=== PATIENT | female | born 1945 | race Caucasian/White ===

== ENCOUNTER 2017-09-30 10:00 | Outpatient (RCR) | payer MEDICARE, BC, SELFPAY | END 2017-10-02 23:59 | LOC: NS 10:00 | PROVIDERS: Family Provider Internal Medicine; PCP Internal Medicine; Visit Provider Specialist | DX: Z68.43 Body mass index [BMI] 50.0-59.9, adult (principal); Z71.3 Dietary counseling and surveillance | CPT/HCPCS: 97802; 97803 ==

== ENCOUNTER → 2017-10-10 08:18 | Outpatient (CLI) | payer MEDICARE, BC, SELFPAY ==
--- NOTE | 2017-10-10 08:18 | DT_ITS ---
This patient was seen during an EMR downtime October 06, 2017 - October 13, 2017. This patient may have a combination of paper and electronic documentation or all paper documentation. All documentation is viewable within the e-chart portion of [facility] for each patient visit.
--- NOTE | 2017-10-10 08:24 | CT_ITS ---
STUDY: CT MAXILLOFACIAL SINUSES REASON FOR EXAM: Female, 71 years old. Left-sided facial pain and swelling RADIATION DOSAGE (If Supplied By Facility): CTDIvol = ( 29.38 ) mGy, DLP = ( 407.88 ) mGycm TECHNIQUE: The patient was scanned in a multi detector CT scanner. High resolution axial imaging was performed without the administration of intravenous contrast material. Sagittal and coronal images were reconstructed. Individualized dose optimization techniques were used for this CT. COMPARISON: None. FINDINGS: FRONTAL SINUSES: Normal aeration, without mucosal inflammatory disease. ETHMOIDAL SINUSES: Mild mucosal thickening of the ethmoid vessels also noted. MAXILLARY SINUSES: Complete opacification of the left-sided maxillary sinus with mucoperiosteal thickening and internal hyperdensity likely related with chronic sinusitis with allergic fungal contents. Subtle stranding in the left retromaxillary space as well as a premaxillary space noted. Invasive fungal sinusitis is a diagnostic consideration SPHENOIDAL SINUSES: Normal aeration, without mucosal inflammatory disease. There is patency of the bilateral maxillary infundibuli with normal uncinate processes, ethmoid bullae, and hiatus semilunaris. Normal bilateral middle turbinates. Normal bilateral inferior turbinates. Annual for deviation of the nasal septum with spurring encroaching on the inferior turbinate.. There is patency of the bilateral nasal airways. The visualized osseous structures are normal. The visualized bilateral orbital contents are normal. Intracranial atherosclerotic vascular calcifications are noted. Chronic small vessel disease. Pleural-based calcifications. CT/Sinus/Facial Bone IMPRESSION: Complete opacification of the left-sided maxillary sinus with mucoperiosteal thickening and internal hyperdensity likely related with chronic sinusitis with allergic fungal contents. Subtle stranding in the left retromaxillary space as well as a premaxillary space noted. Invasive fungal sinusitis is a diagnostic consideration. Narrowing and obstruction of the left maxillary bone. Periapical cyst formation of the left maxillary tooth noted with subtle dehiscence along the floor of the left maxillary sinus Electronically Signed: Dhaval Crandall, at 14:23 EDT Tel , Service support ,
== END ==
PROVIDERS: Family Provider Internal Medicine; PCP Internal Medicine; Visit Provider Internal Medicine
DX: R51 Headache (principal); Z12.31 Encounter for screening mammogram for malignant neoplasm of breast
CPT/HCPCS: 70486; 77063; 77067

== ENCOUNTER → 2017-10-10 10:26 | Outpatient (CLI) | payer MEDICARE, BC, SELFPAY ==
--- NOTE | 2017-10-10 10:26 | DT_ITS ---
This patient was seen during an EMR downtime October 06, 2017 - October 13, 2017. This patient may have a combination of paper and electronic documentation or all paper documentation. All documentation is viewable within the e-chart portion of [facility] for each patient visit.
--- NOTE | 2017-10-10 10:35 | BI_ITS ---
MAMMOGRAPHY - BILATERAL SCREENING REASON FOR EXAM: Female, 71 years old. Routine annual screening examination. PERTINENT HISTORY: Non-contributory. TECHNIQUE: Digital bilateral breast sushma (3D mammographic acquisition) in the CC and MLO projections. 2-D mediolateral oblique (MLO) and craniocaudad (CC) views of both breasts were obtained. CAD: Full Field Digital Mammography with Computer Added Detection was performed. COMPARISON: Comparison is made with prior study dated May 07, 2016 and May 03, 2014. FINDINGS: Breast Composition: There are scattered areas of fibroglandular density. There are no dominant masses or suspicious calcifications. This is 6.4 mm well-defined nodular density in the upper lateral portion of the right breast. Correlation with ultrasound is recommended. Stable benign appearing bilateral axillary lymph nodes. No other significant abnormalities are identified. BI/SCREENING MAMM (CAD), BILAT IMPRESSION: 6.4 mm well-defined nodule in the upper lateral portion of the right breast as described. Correlation with ultrasound is recommended. ASSESSMENT CATEGORY: BIRADS Category 0: Incomplete. Need additional imaging evaluation. A letter regarding these results will be sent to the patient by the facility within 30 days. Approximately 10% of breast cancers are not detected by mammography. A normal mammogram should not delay biopsy of a clinically suspicious abnormality. [id number] Electronically Signed: Temo Lopez MD at 10:01 EDT Tel [phone], Service support ,
== END ==
PROVIDERS: Family Provider Internal Medicine; PCP Internal Medicine; Visit Provider Internal Medicine
DX: Z12.31 Encounter for screening mammogram for malignant neoplasm of breast (principal)
CPT/HCPCS: 77063; 77067

== ENCOUNTER 2017-10-23 16:00 | Outpatient (RCR) | payer MEDICARE, BC, SELFPAY | END 2017-11-01 23:59 | LOC: DC 16:00 | PROVIDERS: Family Provider Internal Medicine; PCP Internal Medicine; Visit Provider Specialist | DX: Z71.3 Dietary counseling and surveillance (principal); Z68.43 Body mass index [BMI] 50.0-59.9, adult | CPT/HCPCS: 97803; G0108 ==

== ENCOUNTER → 2017-10-27 10:31 | Outpatient (CLI) | payer MEDICARE, BC, SELFPAY ==
--- NOTE | 2017-10-27 10:34 | US_ITS ---
STUDY: ULTRASOUND BREAST - RIGHT REASON FOR EXAM: Female, 72 years old. Abnormal screening mammogram. TECHNIQUE: Axial and longitudinal images of the RIGHT breast were performed with a high resolution ultrasound transducer. COMPARISON: Comparison is made with prior mammogram dated October 10, 2017 and May 07, 2016. FINDINGS: RIGHT Breast: The upper outer quadrant of the right breast was examined by ultrasound. There is a 6 mm x 4 mm x 2 mm hypoechoic solid nodule with mild posterior shadowing at 11:00 position of the breast at 2 cm from the nipple. This corresponds to the mammographic findings. A biopsy is recommended for further evaluation. Is also evidence of a 7 mm x 7 mm x 6 mm cyst at the 9:00 position of the breast at 5 cm from nipple. US/Breast Limited Unilateral IMPRESSION: 6 mm x 4 mm x 2 mm hypoechoic solid nodule with posterior acoustical shadowing at the 11:00 position breast at 2 cm from nipple. Biopsy recommended. ASSESSMENT CATEGORY: BIRADS Category 4: Suspicious - Biopsy Should Be Considered. A letter regarding these results will be sent to the patient by the facility within 30 days. Electronically Signed: Temo Lopez MD at 13:10 EDT Tel [phone], Service support ,
== END ==
PROVIDERS: Family Provider Internal Medicine; PCP Internal Medicine; Visit Provider Internal Medicine
DX: R92.8 Other abnormal and inconclusive findings on diagnostic imaging of breast (principal)
CPT/HCPCS: 76642

== ENCOUNTER → 2017-10-31 11:21 | Outpatient (CLI) | payer MEDICARE, BC, SELFPAY ==
--- NOTE | 2017-10-31 | BRBX_PTH ---
PATIENT: ITZEL VIEYRA LOC: [facility] U#:[id number] AGE/SX: 79/F ROOM: RE10/31/[address]: Dr. Zackary Perrin MD : 1945 BED: DIS: SPEC #: [id number] RECD: 10/31/17 13:16 STATUS: KISHOR YO #: [id number] EKTA: 10/31/17 00:[address]: Zackary Perrin DEPT: SURGICAL PATHOLOGY RECD BY: Nato Guthrie ENTERED: 10/31/17 13:17 SP TYPE: BREAST BX OTHR DR: Dr. Jaimie Bragg MD Tissues: Right breast, NOS Procedures: Surgery Specimen Level IV HEADER OPERATION: Right breast mammotome, biopsy PRE-OP DIAGNOSIS: Right breast abnormal US TISSUE SUBMITTED: Right breast tissue ISCHMEIC TIME: Less than 1 minute FIXATION TIME: 48hours MICROSCOPIC DIAGNOSIS Right breast tissue, mammotome core biopsy: Hyalinized fibroadenoma. Negative for atypia or malignancy. MYLES:enrrique 11/03/17 COMMENT Correlation with clinical, radiologic findings and appropriate follow up are necessary. MICROSCOPIC DESCRIPTION Slides are reviewed. GROSS DESCRIPTION Received in fixative is one container labeled with the patient's name and designated right breast tissue. The specimen consists of multiple irregular fragments of joyce yellow fibroadipose tissue in aggregate measure 3 x 2.5 x 0.2 cm. The specimen is totally submitted in one cassette. MYLES:enrrique 10/31/17 TC:1 CPT: 38886
== END ==
PROVIDERS: Family Provider Internal Medicine; PCP Internal Medicine; Visit Provider Surgery
DX: D24.1 Benign neoplasm of right breast (principal)
CPT/HCPCS: 88305

== ENCOUNTER 2017-11-11 10:07 | Outpatient (RCR) | payer MEDICARE, BC, SELFPAY | END 2017-12-02 23:59 | LOC: NS 10:07 | PROVIDERS: Family Provider Internal Medicine; PCP Internal Medicine; Visit Provider Specialist | DX: Z68.43 Body mass index [BMI] 50.0-59.9, adult (principal); Z71.3 Dietary counseling and surveillance | CPT/HCPCS: 97803 ==

== ENCOUNTER 2017-12-15 11:30 | Outpatient (RCR) | payer MEDICARE, BC, SELFPAY | END 2018-01-02 23:59 | LOC: NS 11:30 | PROVIDERS: Family Provider Internal Medicine; PCP Internal Medicine; Visit Provider Specialist | DX: E11.9 Type 2 diabetes mellitus without complications (principal); E66.8 Other obesity; Z68.43 Body mass index [BMI] 50.0-59.9, adult; Z71.3 Dietary counseling and surveillance | CPT/HCPCS: 97803; G0109 ==

== ENCOUNTER 2018-01-19 10:30 | Outpatient (RCR) | payer MEDICARE, BC, SELFPAY | END 2018-02-01 23:59 | LOC: NS 10:30 | PROVIDERS: Family Provider Internal Medicine; PCP Internal Medicine; Visit Provider Specialist | DX: Z68.43 Body mass index [BMI] 50.0-59.9, adult (principal); Z71.3 Dietary counseling and surveillance | CPT/HCPCS: 97803 ==

== ENCOUNTER 2018-02-05 08:37 | Outpatient (RCR) | payer MEDICARE, BC, SELFPAY | END 2018-03-04 23:59 | disposition home or self-care (01) | LOC: NS 08:37 | PROVIDERS: Family Provider Internal Medicine; PCP Internal Medicine; Visit Provider Specialist | DX: E11.9 Type 2 diabetes mellitus without complications (principal); Z68.43 Body mass index [BMI] 50.0-59.9, adult; Z71.3 Dietary counseling and surveillance | CPT/HCPCS: G0109 ==

== ENCOUNTER 2018-03-06 10:55 | Outpatient (RCR) | payer MEDICARE, BC, SELFPAY | END 2018-04-03 23:59 | LOC: NS 10:55 | PROVIDERS: Family Provider Internal Medicine; PCP Internal Medicine; Visit Provider Specialist | DX: E66.09 Other obesity due to excess calories (principal); Z68.43 Body mass index [BMI] 50.0-59.9, adult; Z71.3 Dietary counseling and surveillance | CPT/HCPCS: 97803 ==

== ENCOUNTER 2018-04-08 15:26 | Outpatient (RCR) | payer MEDICARE, BC, SELFPAY | END 2018-05-04 23:59 | LOC: DC 15:26 | PROVIDERS: Family Provider Internal Medicine; PCP Internal Medicine; Visit Provider Specialist | DX: E66.09 Other obesity due to excess calories (principal); Z68.43 Body mass index [BMI] 50.0-59.9, adult; Z71.3 Dietary counseling and surveillance ==

== ENCOUNTER → 2018-05-12 08:55 | Outpatient (CLI) | payer MEDICARE, BC, SELFPAY ==
--- NOTE | 2018-05-12 09:04 | BD_ITS ---
STUDY: DUAL ENERGY X-RAY ABSORPTIOMETRY / DXA REASON FOR EXAM: Female, 72 years old. The patient is postmenopausal. Loss of height. TECHNIQUE: Bone Mineral Density (BMD) measurements of lumbar spine and bilateral hips were obtained. COMPARISON: Comparison is made with prior study dated May 03, 2014. FINDINGS: Lumbar Spine (L1-L4): g/cm2 (1.154) / T-score (-0.1) / Z-score (1.6) Findings are suggestive of normal bone density with a low fracture risk. Left Femur Total: g/cm2 (0.985) / T-score (-0.2) / Z-score (1.4) Left Femoral Neck: g/cm2 (0.856) / T-score (-1.3) / Z-score (0.4) Right Femur Total: g/cm2 (0.863) / T-score (-1.1) / Z-score (0.4) Right Femoral Neck: g/cm2 (0.809) / T-score (-1.6) / Z-score (0.1) The T-Scores on the most recent prior examination were: Lumbar Spine (L1-L4): There has been worsening of bone density since the previous examination. Left Femur Total: which represents a worsening of 1.7%. Right Femur Total: which represents a worsening of 4.7%. BD/Dexa Bone Density Study IMPRESSION: The patient is considered osteopenic as outlined below according to World Oneal Organization (WHO) criteria with a moderate fracture risk. There has been worsening of bone density since the previous examination. Reference Information: The T-score is the number of standard deviations above or below the standard which is normal for young adults at their peak bone mineral density. The World Health Organization (WHO) interprets the T-scores as follows: Above -1 Normal bone density Between -1 and -2.5 Osteopenia Equal to / or below -2.5 Osteoporosis As a practical clinical guideline, osteopenia may be graded as follows: Mild -1 through -1.5 Moderate -1.6 through -2.0 Severe -2.1 through -2.4 The Z-score is the number of standard deviations above or below age-matched controls. A Z-score of less than -1.5 would be considered abnormal. References: 1. NIH Osteoporosis and Related Bone Diseases http://www.osteo.org 2. International Society for Clinical Densitometry http://www.iscd.org 3. National Osteoporosis Foundation http://www.nof.org Electronically Signed: Temo Lopez MD at 14:05 EST Tel [phone], Service support ,
== END ==
PROVIDERS: Family Provider Internal Medicine; PCP Internal Medicine; Referring Provider Internal Medicine; Visit Provider Internal Medicine
DX: Z78.0 Asymptomatic menopausal state (principal)
CPT/HCPCS: 77080

== ENCOUNTER 2018-07-09 13:27 | Outpatient (RCR) | payer MEDICARE, BC, SELFPAY | END 2018-08-02 23:59 | LOC: DC 13:27 | PROVIDERS: Family Provider Internal Medicine; PCP Internal Medicine; Visit Provider Specialist | DX: E66.09 Other obesity due to excess calories (principal); Z68.43 Body mass index [BMI] 50.0-59.9, adult; Z71.3 Dietary counseling and surveillance | CPT/HCPCS: G0109 ==

== ENCOUNTER 2018-09-03 16:01 | Outpatient (RCR) | payer MEDICARE, BC, SELFPAY | END 2018-09-03 23:59 | disposition home or self-care (01) | LOC: DC 16:01 | PROVIDERS: Family Provider Internal Medicine; PCP Internal Medicine; Visit Provider Specialist | DX: E66.09 Other obesity due to excess calories (principal); Z68.43 Body mass index [BMI] 50.0-59.9, adult; Z71.3 Dietary counseling and surveillance | CPT/HCPCS: G0109 ==

== ENCOUNTER → 2018-11-06 | Outpatient (CLI) | payer MEDICARE, BC, SELFPAY ==
--- NOTE | 2018-11-06 13:20 | BI_ITS ---
MAMMOGRAPHY - BILATERAL SCREENING REASON FOR EXAM: Female, 73 years old. Routine annual screening examination. PERTINENT HISTORY: Non-contributory. TECHNIQUE: Digital bilateral breast spencer (3D mammographic acquisition) in the CC and MLO projections. 2-D mediolateral oblique (MLO) and craniocaudad (CC) views of both breasts were obtained. CAD: Full Field Digital Mammography with Computer Added Detection was performed. COMPARISON: Comparison is made with prior study dated October 10, 2017 and May 07, 2016. FINDINGS: Breast Composition: There are scattered areas of fibroglandular density. The previously seen nodular density in the slightly upper lateral portion of the right breast as increase in size. It presently measures 8 mm x 8 mm. A repeat sonogram is recommended. No other significant abnormalities are identified. BI/SCREEN MAMM (CAD) W/SPENCER BILAT IMPRESSION: Slight increase in size of the breast nodule in the upper lateral aspect of the right breast as described. A repeat sonogram is recommended for further evaluation. ASSESSMENT CATEGORY: BIRADS Category 0: Incomplete. Need additional imaging evaluation. A letter regarding these results will be sent to the patient by the facility within 30 days. Approximately 10% of breast cancers are not detected by mammography. A normal mammogram should not delay biopsy of a clinically suspicious abnormality. [id number] Electronically Signed: Temo Lopez, at 14:58 EDT , Service support ,
== END | disposition home or self-care (01) ==
LOC: OPBI 13:19
PROVIDERS: Family Provider Internal Medicine; PCP Internal Medicine; Referring Provider Internal Medicine; Visit Provider Internal Medicine
DX: Z12.31 Encounter for screening mammogram for malignant neoplasm of breast (principal)
CPT/HCPCS: 77063; 77067

== ENCOUNTER → 2018-11-10 | Outpatient (CLI) | payer MEDICARE, BC, SELFPAY ==
--- NOTE | 2018-11-10 13:53 | US_ITS ---
STUDY: ULTRASOUND BREAST - RIGHT REASON FOR EXAM: Female, 73 years old. Abnormal screening mammogram. TECHNIQUE: Axial and longitudinal images of the RIGHT breast were performed with a high resolution ultrasound transducer. COMPARISON: Comparison is made with prior mammogram dated November 06, 2018 and prior ultrasound of the right breast dated October 27, 2017. FINDINGS: RIGHT Breast: There is a 7 mm x 8 mm x 6 mm cyst at the 9:00 position of the breast at 5 cm from nipple. This also evidence of a 1 cm x 0.8 cm x 0.5 cm dilated duct at 11:00 lesion of the breast at 2 cm from the nipple. A tissue clip marker is seen within the duct. I suspect a small polyp within the duct. US/Breast Limited Unilateral IMPRESSION: Stable examination. Tissue marker is seen within the dilated duct containing a small hypoechoic nodule. ASSESSMENT CATEGORY: BIRADS Category 2: Benign. A letter regarding these results will be sent to the patient by the facility within 30 days. Electronically Signed: Temo Lopez, at 9:02 EDT , Service support ,
== END | disposition home or self-care (01) ==
LOC: OPUS 13:51
PROVIDERS: Family Provider Internal Medicine; PCP Internal Medicine; Referring Provider Internal Medicine; Visit Provider Internal Medicine
DX: R92.8 Other abnormal and inconclusive findings on diagnostic imaging of breast (principal)
CPT/HCPCS: 76642

== ENCOUNTER 2018-12-11 11:19 | Day surgery (SDC) | payer MEDICARE, BC, SELFPAY ==
[2018-11-30 14:44] VITALS: BMI 46.1
--- NOTE | 2018-12-09 06:47 | EKG12_ITS ---
Test Reason : PRE OP Blood Pressure : / mmHG Vent. Rate : 073 BPM Atrial Rate : 073 BPM P-R Int : 156 ms QRS Dur : 094 ms QT Int : 416 ms P-R-T Axes : -21 027 014 degrees QTc Int : 458 ms Normal sinus rhythm Normal ECG Confirmed by ROSAS ARGUELLES ([id number]), editor city VIKASH SERNA ([id number]) on 12/10/2018 1:53:07 PM Referred By: Zackary Perrin Confirmed By:ROSAS ARGUELLES
[2018-12-09 07:25] LABS: Hematocrit 39.9 % (37-47); Hemoglobin 12.9 g/dL (12.0-15.0); Mean Corp Hgb Conc 32.3 g/dL (32-36); Mean Corpuscular Hgb 32.3 pg (27.0-32.0); Mean Platelet Vol. 10.2 fl (6.2-12.0); Platelet Count 284 K/mm3 (150-450); RBC Distribution Width CV 13.2 % (11.6-14.6); RBC Distribution Width SD 48.3 fl (35.1-43.9); Red Blood Count 3.99 M/mm3 (4.2-5.4); White Blood Count 5.3 K/mm3 (4.4-11.0)
[2018-12-09 07:58] LABS: Anion Gap 7 (5-15); BUN 23 mg/dL (7-18); BUN/Creat Ratio 30.8 RATIO (10-20); Calcium,Total 8.9 mg/dL (8.5-10.1); Chloride 108 mmol/L (98-107); Creatinine, Serum 0.75 mg/dL (0.55-1.02); EST Glomerular Filtration Rate 81 mL/min (>60); Est Glom Filt Rate - Afr Amer 98 mL/min (>60); Glucose 112 mg/dL (74-106); Potassium 3.9 mmol/L (3.5-5.1); Sodium Level 143 mmol/L (136-145)
--- NOTE | 2018-12-11 05:48 | PCM.HP.BLA ---
Problem List (1) Abnormal ultrasound of breast Status: Acute History and Physical Date of Admission: 12/11/18 Intake Visit Reasons: Yearly R breast check US/Mammo [facility] Chief Complaint: right breast bx Allergies No Known Allergies Allergy (Verified 11/30/18 14:43) Medications Atorvastatin Calcium [Lipitor] 10 mg PO DAILY 01/04/14 [History Confirmed 11/30/18] Cholecalciferol (Vitamin D3) [Vitamin D3] 2,000 unit PO DAILY 01/04/14 [History Confirmed 11/30/18] Hydroxychloroquine [Plaquenil] 200 mg PO BIDCM 01/04/14 [History Confirmed 11/30/18] Levothyroxine [Synthroid] 125 mcg PO DAILY 01/04/14 [History Confirmed 11/30/18] Losartan/Hydrochlorothiazide [Hyzaar 50-12.5 Tablet] 1 tab PO DAILY 01/04/14 [History Confirmed 11/30/18] Metoprolol Tartrate [Lopressor (beta sherita)] 50 mg PO DAILY 01/04/14 [History Confirmed 11/30/18] Multivit-Min/FA/Lycopene/Lut [Centrum Silver Tablet] 1 ea PO DAILY 01/04/14 [History Confirmed 11/30/18] Sulfasalazine [Azulfidine] 1,000 mg PO BID 01/04/14 [History Confirmed 11/30/18] Timolol 0.25% [Timoptic] 1 drp EACH EYE BID 01/04/14 [History Confirmed 11/30/18] metFORMIN HCl [Glucophage] 500 mg PO BIDCM 01/04/14 [History Confirmed 11/30/18] dorzolamide-timolol (PF) 2 %-0.5 % eye drops in a dropperette 1 drp OPHTHALMIC BID 10/30/17 [History Confirmed 11/30/18] meloxicam 7.5 mg tablet See Rx Instructions PO BID tab 10/30/17 [History Confirmed 11/30/18] nystatin 100,000 unit/gram topical cream 1 applic TOPICAL BID #15 g 10/30/17 [Rx Confirmed 11/30/18] sulfasalazine 500 mg tablet 0.5 g PO QDAY 10/30/17 [History Confirmed 11/30/18] [facility] Medical History Abnormal ultrasound of breast (Acute) Arthritis (Acute) Diabetes (Acute) Glaucoma (Acute) Hypothyroid (Acute) Primary hypercholesterolemia (Acute) HTN (hypertension) (Chronic) Surgical History S/P laparoscopic cholecystectomy (Acute) S/P right breast biopsy (Acute) Family History Mother Diabetes Father Heart disease Grandfather Diabetes Grandmother Diabetes Social History (Updated 11/30/18 @ 15:18 by Zackary Perrin MD) Smoking Status: Never smoker alcohol intake: never HPI HPI HPI: ITZEL VIEYRA, is a 73 F who presents to the office today for ongoing surgical consultation regarding a right breast mammogram and ultrasound. Previously on October 31, 2017 I did ultrasound-guided mammotome core biopsy right breast which suggested a hyalinized fibroadenoma negative for atypia or malignancy. The current mammogram suggests enlargement from 6.4 to 8 mm. My previous notes below reflect the following A0. Menarche at age 14. First child was born when she was 25. She did not breast-feed. No previous breast biopsies. Not on any estrogen replacement. Family history is negative for breast cancer. The patient had routine screening mammography at the [facility] on October 10, 2017. There was felt to be a 6.4 mm well-defined nodule in the upper lateral portion of the right breast. Correlation with ultrasound was recommended. BI-RADS Category 0. On October 27, 2017 she had right breast ultrasound. This was somewhat confusing in that the interpretation was that there was a 6 x 4 x 2 mm hypoechoic solid nodule 11 o'clock position +2 cm right breast that correlated with the mammogram. This actually is not correct. The patient has a 7 x 7 x 6 mm cyst right breast 9 o'clock position +5 cm and it is this lesion that correlates with her mammogram. Her ultrasound has identified a vague 6 x 4 x 2 mm hypoechoic area right breast 11 o'clock position +2 cm which was not identified on mammogram. It is this area that is felt to be BI-RADS Category 4 [facility] Imaging Services [address] [place] [address] Breast Limited Unilateral MR#: [id number]:[id number] Name: ITZEL VIEYRA #:[id number] : 1945 73 From: Temo Lopez MD PCP:Jaimie Bragg MD Status:REG CLI Study:Breast Limited Unilateral Date of Exam:11/10/18 Exam#[id number] Ordering Dr: Jaimie Bragg MD STUDY: ULTRASOUND BREAST - RIGHT REASON FOR EXAM: Female, 73 years old. Abnormal screening mammogram. TECHNIQUE: Axial and longitudinal images of the RIGHT breast were performed with a high resolution ultrasound transducer. COMPARISON: Comparison is made with prior mammogram dated November 06, 2018 and prior ultrasound of the right breast dated October 27, 2017. FINDINGS: RIGHT Breast: There is a 7 mm x 8 mm x 6 mm cyst at the 9:00 position of the breast at 5 cm from nipple. This also evidence of a 1 cm x 0.8 cm x 0.5 cm dilated duct at 11:00 lesion of the breast at 2 cm from the nipple. A tissue clip marker is seen within the duct. I suspect a small polyp within the duct. US/Breast Limited Unilateral IMPRESSION: Stable examination. Tissue marker is seen within the dilated duct containing a small hypoechoic nodule. ASSESSMENT CATEGORY: BIRADS Category 2: Benign. A letter regarding these results will be sent to the patient by the facility within 30 days. Electronically Signed: Temo Lopez, at 9:02 EDT , Service support , HPI HPI HPI: ITZEL VIEYRA, is a 73 F who presents to the office today for Exam Const General: cooperative Nutritional Appearance: obese Orientation: alert, awake Chest Other: Bilateral breasts: No focal mass, no nipple discharge, no axillary or clavicular Resp Effort & Inspection: normal respiratory effort Auscultation: clear to auscultation bilaterally Cardio Rate: regular rate Rhythm: regular rhythm GI Palpation: soft, no hepatosplenomegaly Auscultation: normal bowel sounds Skin General: no rashes or lesions noted Extrem General: no calf tenderness bilaterally Psych Affect: normal affect Assessment & Plan Problems 1. Abnormal ultrasound of breast R92.8 Plan I have personally inspected the patient's mammogram and ultrasounds. There is a comment light tail to a density upper outer right breast 11 o'clock position just at the areolar margin. There appears to have possibly a dilated duct with internal mass or debris. It is not uniform in shape and is quite elongated. There does appear to be a marking clip close by. My concern is that a repeat core biopsy may not definitively resolve the issue certainly will not remove the issue and that this problem will persist on imaging. I have offered her consideration for an ultrasound-guided wire localization of this area with complete excisional biopsy for definitive management. I discussed the technique, benefit, risks, alternatives. She has had an opportunity to ask and have questions answered. She also would like to have definitive resolution so that further imaging does not continue to raise concerns. I very much appreciate the ongoing opportunity of assisting with her surgical care. CC: Dr. Jaimie Perrin M.D., F.A.C.S. Coding Level of Care Code Off vis,est,level 3 Diagnoses Abnormal ultrasound of breast R92.8 11/30/18 [id number] <Electronically signed by Zackary Perrin MD> Date Zackary Perrin MD Cosigner Signature: Date (if applicable) CC: ~ I have re-examined the patient. There are no clinical changes since date of exam.
[2018-12-11 11:51] VITALS: PULSE 97; RESP 18; TEMP 36.8; O2SAT 100; BMI 45.9
[2018-12-11 12:21] LABS: Bedside Glucose 101 mg/dL (70-110)
--- NOTE | 2018-12-11 13:30 | BREAST_PTH ---
PATIENT: ITZEL VIEYRA LOC: [facility] U#:[id number] AGE/SX: 73/F ROOM: RE12/11/[address]: Dr. Zackary Perrin MD : 1945 BED: DIS: 12/11/2018 SPEC #: [id number] RECD: 12/11/18 14:28 STATUS: KISHOR YO #: [id number] EKTA: 12/11/18 13:[address]: Zackary Perrin DEPT: SURGICAL PATHOLOGY RECD BY: Jose Leiva ENTERED: 12/14/18 10:58 SP TYPE: BREAST OTHR DR: Dr. Jaimie Bragg MD Tissues: Right breast, NOS Procedures: Surgery Specimen Level V HEADER OPERATION: Ultrasound guided wire localization, excisional breast biopsy PRE-OP DIAGNOSIS: Abnormal right breast ultrasound TISSUE SUBMITTED: Right breast biopsy MICROSCOPIC DIAGNOSIS Right breast, wire-guided excisional biopsy: Changes consistent with previous biopsy site. Negative for atypia or malignancy. See comment. SJ:rebekah 12/16/18 COMMENT Please make reference to previous specimen ([id number]) right breast tissue, mammotome core biopsy with diagnosis of hyalinized fibroadenoma. MICROSCOPIC DESCRIPTION Slides are reviewed. GROSS DESCRIPTION Received in fixative is one container labeled with the patient's name and designated right breast biopsy. The specimen consists of an irregular fragment of joyce-yellow fibrofatty tissue containing a metallic wire and with no designations measuring 6.5 x 5.5 x 4 cm and weighing 39.5 gm. The external surface is inked and the specimen is serially sectioned to reveal a chalky, yellow lesion measuring 1.5 x 0.6 cm. The remainder of the cut surface is yellow with no mass lesions. [employer] sections are submitted in eight cassettes as follows: 1-4 - lesion, totally submitted, 5-8 - [employer] sections of uninvolved breast parenchyma adjacent to and away from the lesion. Note, sections are submitted after additional fixation. / AM:rebekah 12/14/18 TC:5 CPT: 30945
--- NOTE | 2018-12-11 13:55 | DCINST_ITS ---
Discharge Diet: No Restrictions Discharge Activity: May Not Drive - for 2-3 days or while taking narcotic pain meds. May shower in (days): 1 Lifting Restrictions: 10 pounds for 1 week. Call your doctor if your incision/area has: Continuous Slow Oozing, Sudden In creased Bleeding Call your doctor if you observe: Fever of 101 or Higher Suture Line Care: Avoid Pulling/Pushing, Avoid Pinching/Bending Remove Dressing in (days):: 1 - Remove bulky dressing tomorrow. May leave any opsite dressing for 3-4 days[address] Keep dressing in place until your follow-up appointment. Additional Dressing/Incision Instructions:: Remove bulky dressing tomorrow. May leave any opsite dressing for 3-4 days. You may then remove the OpSite (plastic) dressing and leave the Steri-Strips in place for an additional 1 week. Allergies/Adverse Reactions: Allergies No Known Allergies Allergy (Verified 12/11/18 11:35) Medications to take at Discharge Atorvastatin Calcium [Lipitor] 10 mg PO DAILY 01/04/14 Cholecalciferol (Vitamin D3) [Vitamin D3] 2,000 unit PO DAILY 01/04/14 Hydroxychloroquine [Plaquenil] 200 mg PO BIDCM 01/04/14 Levothyroxine [Synthroid] 175 mcg PO DAILY 01/04/14 Losartan/Hydrochlorothiazide [Hyzaar 50-12.5 Tablet] 1 tab PO DAILY 01/04/14 Metoprolol Tartrate [Lopressor (beta sherita)] 50 mg PO DAILY 01/04/14 Multivit-Min/FA/Lycopene/Lut [Centrum Silver Tablet] 1 ea PO DAILY 01/04/14 Sulfasalazine [Azulfidine] 1,000 mg PO BID 01/04/14 metFORMIN HCl [Glucophage] 500 mg PO BIDCM 01/04/14 dorzolamide-timolol (PF) 2 %-0.5 % eye drops in a dropperette 1 drp OPHTHALMIC BID 10/30/17 meloxicam 7.5 mg tablet 15 mg PO DAILY tab 10/30/17 Latanoprost 0.005% [Xalatan Opthalmic] 1 drp EACH EYE QHS 12/07/18 Hydrocodone Bitart/Apap 5-325 [Sebastian 5MG-325MG] 1 tablet PO Q4H PRN PRN 2 Days #5 tablet 12/11/18 The following prescriptions were given: Hydrocodone Bitart/Apap 5-325 [Sebastian 5MG-325MG] 1 tablet PO Q4H PRN PRN 2 Days #5 tablet PRN Reason: Pain Transmission Status: Received by [id number] Primary Care Physician: Jaimie Bragg MD [Primary Care Provider] - Please Follow Up With: Zackary Perrni MD When: [phone] Call for appt in 10 days please
--- NOTE | 2018-12-11 14:32 | BI_ITS ---
SURGICAL BREAST SPECIMEN RADIOGRAPH CLINICAL: Document presence of tissue clip marker in biopsy specimen. FINDINGS: Specimen shows presence of tissue clip marker. Electronically Signed: Temo Lopez, at 15:00 EDT , Service support , BI/Breast Biopsy Specimen
--- NOTE | 2018-12-11 14:49 | PCM.OPRPT ---
Problem List (1) Abnormal ultrasound of breast Status: Acute Report of Operation Date of Procedure: 12/11/18 Pre-Operative Diagnosis: Abnormal ultrasound upper outer quadrant right breast Post-Operative Diagnosis: Same Surgery/Procedure Performed:: Ultrasound-guided wire localization upper outer right breast with wire localized excisional biopsy Description of Surgical Findings:: 73-year-old female was taken to the operating room. She was placed on supine on the table. She underwent general anesthesia. The right breast was sterilely prepped draped in routine fashion. Ultrasound was performed demonstrating a dense in question 11 o'clock position periareolar right breast. Under ultrasound guidance I placed a Kopan's needle displaced the wire. Then made a curvilinear incision and using the wires guidance went down rather deep into the edge of the areola toward the chest wall. I used electrocautery and sharp dissection to dissect out circumferentially around the lesion. A marking clip was identified at the edge of the lesion. Shelbina benign. I felt that I had circumferential dissection performed. Hemostasis was secured with electrocautery. The subcutaneous tissues approximate interrupted 3-0 Vicryl. Skin edges proximal interrupted 4-0 Monocryl subdermal stitches. Steri-Strips Telfa OpSite bulky dry dressings applied. The paris-incisional was anesthetized with 30 cc of 0.5% Marcaine. Specimens the breast biopsy lumpectomy. Drains none. Blood loss minimal. She was taken to the recovery area in satisfactory condition without apparent complication Zackary Perrin M.D., F.A.C.S. Type of Anesthesia:: General Anesthesiologist: Serjio Gill
[2018-12-11 14:59] VITALS: BP 140/75; BP 157/68; PULSE 92; RESP 16; TEMP 36.1; O2SAT 92
[2018-12-11 15:17] VITALS: BP 140/74; BP 157/68; PULSE 87; RESP 14; O2SAT 94
[2018-12-11 15:30] VITALS: BP 137/71; BP 157/68; PULSE 81; RESP 16; TEMP 36; O2SAT 97
[2018-12-11 15:51] LABS: Bedside Glucose 96 mg/dL (70-110)
[2018-12-11 16:05] VITALS: BP 157/68
== END 2018-12-11 16:17 | disposition home or self-care (01) ==
LOC: SDC 11:20 → AC 11:24
PROVIDERS: Family Provider Internal Medicine; PCP Internal Medicine; Referring Provider Surgery; Visit Provider Surgery
PROC: (CPT 19083; principal; 2018-12-11 13:15)
DX: R92.8 Other abnormal and inconclusive findings on diagnostic imaging of breast (principal); E03.9 Hypothyroidism, unspecified; E11.9 Type 2 diabetes mellitus without complications; M19.90 Unspecified osteoarthritis, unspecified site; I10 Essential (primary) hypertension; E78.00 Pure hypercholesterolemia, unspecified; Z79.899 Other long term (current) drug therapy; Z79.84 Long term (current) use of oral hypoglycemic drugs; K21.9 Gastro-esophageal reflux disease without esophagitis
CPT/HCPCS: 19125; 36415; 76098; 80048; 82962; 85027; 88305; 88307; 93005; J7120; J2405

== ENCOUNTER → 2019-08-31 06:28 | Outpatient (CLI) | payer MEDICARE, BC, SELFPAY | PROVIDERS: PCP Internal Medicine; Referring Provider Internal Medicine; Visit Provider Surgery | DX: Z01.818 Encounter for other preprocedural examination (principal) ==

== ENCOUNTER 2019-09-14 06:33 | Day surgery (SDC) | payer MEDICARE, BC, SELFPAY ==
[2019-09-14] VITALS (7 sets, daily range): BP systolic 108–144; BP diastolic 42–76; PULSE 33–73; RESP 16–18; TEMP 36.3–36.6; O2SAT 93–100; BMI 46.3
--- NOTE | 2019-09-14 06:53 | PCM.HP.STD ---
Problem List (1) Screening for intestinal cancer Status: Acute History of Present Illness Date of Admission: 09/14/19 The patient is a 73 year old F who presents for screening colonoscopy today. She has no specific complaints. She states that she otherwise has enjoyed good health. No abdominal pain. No bright red blood per rectum or melena. She denies personal history of colon cancer. Last colonoscopy was greater than 10 years ago. No family history of colon cancer. 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 (Acute) D24.1 Abnormal ultrasound of breast (Acute) R92.8 Arthritis M19.90 Diabetes E11.9 Glaucoma H40.9 Hypothyroid E03.9 Primary hypercholesterolemia E78.00 HTN (hypertension) I10 Allergies No Known Allergies Allergy (Verified 09/10/19 12:13) Home Medications: Ambulatory Orders Medication Instructions Recorded Atorvastatin Calcium [Lipitor] 20 mg PO DAILY 01/04/14 Cholecalciferol (Vitamin D3) 2,000 unit PO DAILY 01/04/14 [Vitamin D3] Hydroxychloroquine [Plaquenil] 200 mg PO BIDCM 01/04/14 Levothyroxine [Synthroid] 175 mcg PO DAILY 01/04/14 Losartan/Hydrochlorothiazide 1 tab PO DAILY 01/04/14 [Hyzaar 50-12.5 Tablet] Metoprolol Tartrate [Lopressor 50 mg PO DAILY 01/04/14 (beta sherita)] Multivit-Min/FA/Lycopene/Lut 1 ea PO DAILY 01/04/14 [Centrum Silver Tablet] Sulfasalazine [Azulfidine] 1,000 mg PO BID 01/04/14 metFORMIN HCl [Glucophage] 500 mg PO BIDCM 01/04/14 dorzolamide-timolol (PF) 2 %-0.5 % 1 drp OPHTHALMIC BID 10/30/17 eye drops in a dropperette meloxicam 7.5 mg tablet 15 mg PO DAILY tab 10/30/17 Latanoprost 0.005% [Xalatan 1 drp EACH EYE QHS 12/07/18 Opthalmic] Surgical History: Surgical History (Last Reviewed 11/30/18 @ 14:42 by Shantell Lincoln) S/P laparoscopic cholecystectomy Z90.49 S/P right breast biopsy Z98.890 Smoking Status: Never smoker Tobacco Use: Non-smoker Review of Systems Constitutional: Denies: Anorexia HEENT: Denies: Difficulty Swallowing Cardiovascular: Denies: Chest Pain Respiratory: Denies: Cough, Hemoptysis Gastrointestinal: Denies: Abdominal Pain, Melena Endocrine: Denies: Change in Body Habitus VTE Information - Inpt Only VTE Present on Admission: No Patient Problems: Active and Suspected Problems (Last Reviewed 11/30/18 @ 14:42 by Shantell Lincoln) Screening for intestinal cancer (Acute) - Physical Exam Vitals/I&O's: Body Mass Index (BMI) 45.9 General: Alert, Oriented x3, Cooperative, No apparent distress HEENT: Atraumatic Oral: Moist Mucosa Neck: Supple Lungs: Clear to auscultation, Normal air movement Cardiovascular: Regular rate, Regular Rhythm Abdomen: Bowel Sounds Present, Soft, Non Tender Extremities: No Calf Tenderness Psych/Mental Status: Normal Affect Assessment/Plan All Active Problems (Last Reviewed 11/30/18 @ 14:42 by Shantell Lincoln) Screening for intestinal cancer (Acute) 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 She is aware of the technique, benefit, risks, alternatives. She has had an opportunity to ask and have questions answered. She presents via our open access program today. Zackary Perrin M.D., F.A.C.S.
[2019-09-14] MEDS: Lactated Ringers 1,000 ML 100 ML IV (07:15)
[2019-09-14 07:16] LABS: Bedside Glucose 116 mg/dL (70-110)
--- NOTE | 2019-09-14 08:21 | OP.COLON_ITS ---
Patient Name: Alber Mcmillan Procedure Date: 09/14/2019 7:50 AM Date of : 1945 Age: 73 Procedure: Colonoscopy Indications: Screening for colorectal malignant neoplasm Providers: Zackary Perrin MD Referring MD: Sima Germain Medicines: See the Anesthesia note for documentation of the administered medications Patient Profile: Last Colonoscopy: more than 10 years ago. Complications: No immediate complications. Procedure: Pre-Anesthesia Assessment: - Prior to the procedure, a History and Physical was performed, and patient medications and allergies were reviewed. The patient's tolerance of previous anesthesia was also reviewed. The risks and benefits of the procedure and the sedation options and risks were discussed with the patient. All questions were answered, and informed consent was obtained. Prior Anticoagulants: The patient has taken no previous anticoagulant or antiplatelet agents. ASA Grade Assessment: II - A patient with mild systemic disease. After reviewing the risks and benefits, the patient was deemed in satisfactory condition to undergo the procedure. After I obtained informed consent, the scope was passed under direct vision. Throughout the procedure, the patient's blood pressure, pulse, and oxygen saturations were monitored continuously. The colonoscope was introduced through the anus and advanced to the cecum, identified by appendiceal orifice and ileocecal valve. The colonoscopy was performed without difficulty. The patient tolerated the procedure well. The quality of the bowel preparation was good. The ileocecal valve and the appendiceal orifice were photographed. Scope In: 7:59:40 AM Scope Withdrawal Time 0 hours 8 minutes 9 seconds Scope Out: 8:14:25 AM Total Procedure Duration Time 0 hours 14 minutes 45 seconds Findings: Hemorrhoids were found on perianal exam. Multiple diverticula were found in the sigmoid colon, descending colon and splenic flexure. The exam was otherwise without abnormality. Impression: - Hemorrhoids found on perianal exam. - Diverticulosis in the sigmoid colon, in the descending colon and at the splenic flexure. - The examination was otherwise normal. - No specimens collected. Recommendation: - Discharge patient to home. - Resume previous diet. - Continue present medications. - Repeat colonoscopy in 10 years for screening purposes. May not be required at that time at age 83 Procedure Code(s): --- Professional --- 86122, Colonoscopy, flexible; diagnostic, including collection of specimen(s) by brushing or washing, when performed (separate procedure) Diagnosis Code(s): --- Professional --- Z12.11, Encounter for screening for malignant neoplasm of colon K64.9, Unspecified hemorrhoids K57.30, Diverticulosis of large intestine without perforation or abscess without bleeding CPT copyright 2017 [employer]. All rights reserved. The codes documented in this report are preliminary and upon icd 9 coder review may be revised to meet current compliance requirements. Zackary Perrin MD 09/14/2019 8:20:40 AM This report has been signed electronically. Number of Addenda: 0 Note Initiated On: 09/14/2019 7:50 AM
--- NOTE | 2019-09-14 08:21 | OP.CCLET_ITS ---
09/14/2019 Sima Germain [address] [place] [address] Re : Colonoscopy procedure for Alber Mcmillan Dear Dr. Germain This procedure was performed on Saturday, September 14, 2019. My impressions and recommendations are as follows: Impressions : - Hemorrhoids found on perianal exam. - Diverticulosis in the sigmoid colon, in the descending colon and at the splenic flexure. - The examination was otherwise normal. - No specimens collected. Recommendations : - Discharge patient to home. - Resume previous diet. - Continue present medications. - Repeat colonoscopy in 10 years for screening purposes. May not be required at that time at age 83 My findings are described in the full procedure note, which is enclosed. If I can be of further assistance, please feel free to contact me at Doctor phone number(s): Work: . Sincerely, Zackary Perrin MD 09/14/2019 8:20:40 AM This report has been signed electronically.
== END 2019-09-14 09:03 | disposition home or self-care (01) ==
LOC: EN 06:34 → AC 06:35
PROVIDERS: PCP Internal Medicine; Referring Provider Internal Medicine; Visit Provider Surgery
PROC: 0DJD8ZZ Inspection of Lower Intestinal Tract, Via Natural or Artificial Opening Endoscopic (ICD-10-PCS; CPT 45378; principal; 2019-09-14 07:45)
DX: Z12.11 Encounter for screening for malignant neoplasm of colon (principal); K57.30 Diverticulosis of large intestine without perforation or abscess without bleeding; K64.9 Unspecified hemorrhoids; E11.9 Type 2 diabetes mellitus without complications; M19.90 Unspecified osteoarthritis, unspecified site; E03.9 Hypothyroidism, unspecified; E78.00 Pure hypercholesterolemia, unspecified; I10 Essential (primary) hypertension; G47.30 Sleep apnea, unspecified; Z79.84 Long term (current) use of oral hypoglycemic drugs; Z79.899 Other long term (current) drug therapy
CPT/HCPCS: G0121; 82962; J7120

== ENCOUNTER 2020-07-06 11:46 | Outpatient (RCR) | payer MEDICARE, BC, SELFPAY ==
[2019-09-14 06:55] VITALS: BMI 46.3
[2020-07-06] MEDS: COVID-19 VACC, MRNA(PFIZER)/PF 30 MCG/0.3 ML SYRINGE IM (07:05)
[2020-07-27] MEDS: COVID-19 VACC, MRNA(PFIZER)/PF 30 MCG/0.3 ML SYRINGE IM (07:15)
== END 2020-10-10 23:59 ==
LOC: IMMUN 11:46
PROVIDERS: PCP Internal Medicine; Visit Provider Family Medicine
DX: Z23 Encounter for immunization (principal)
CPT/HCPCS: 0001A; 0002A; 91300

== ENCOUNTER → 2020-08-22 14:53 | Outpatient (CLI) | payer MEDICARE, BC, SELFPAY ==
[2019-09-14 06:55] VITALS: BMI 46.3
--- NOTE | 2020-08-22 15:03 | BI_ITS ---
MAMMOGRAPHY - BILATERAL SCREENING REASON FOR EXAM: Female, 74 years old. Routine annual screening examination. PERTINENT HISTORY: Non-contributory. History of prior ultrasound-guided right breast biopsy. TECHNIQUE: Digital bilateral breast spencer (3D mammographic acquisition) in the CC and MLO projections. 2-D mediolateral oblique (MLO) and craniocaudad (CC) views of both breasts were obtained. CAD: Full Field Digital Mammography with Computer Added Detection was performed. COMPARISON: Comparison is made with prior study dated 12/11/2018 and 11/06/2018. FINDINGS: Breast Composition: There are scattered areas of fibroglandular density. There are no dominant masses or suspicious calcifications. The previously seen nodular density in the upper lateral aspect of the right breast is not seen at this time. Stable benign-appearing bilateral axillary lymph nodes. No other significant abnormalities are identified. BI/SCRN MAMM (CAD)W/SPENCER BILAT IMPRESSION: Stable bilateral screening mammogram. Yearly follow-up mammogram recommended. (A) ASSESSMENT CATEGORY: BIRADS Category 2: Benign. A letter regarding these results will be sent to the patient by the facility within 30 days. Approximately 10% of breast cancers are not detected by mammography. A normal mammogram should not delay biopsy of a clinically suspicious abnormality. [id number] Electronically Signed: Temo Lopez MD at 15:33 EDT , Service support ,
--- NOTE | 2020-08-22 15:17 | BD_ITS ---
STUDY: DUAL ENERGY X-RAY ABSORPTIOMETRY / DXA REASON FOR EXAM: Female, 74 years old. Z780. The patient is postmenopausal. TECHNIQUE: Bone Mineral Density (BMD) measurements of lumbar spine and bilateral hips were obtained. COMPARISON: Comparison is made with prior study dated 05/03/2014. FINDINGS: Lumbar Spine (L1-L4): g/cm2 (1.282) / T-score (0.9) / Z-score (2.6) Findings are suggestive of normal bone density with a low fracture risk. Left Femur Total: g/cm2 (0.945) / T-score (-0.5) / Z-score (1.2) Left Femoral Neck: g/cm2 (0.849) / T-score (-1.4) / Z-score (0.5) Right Femur Total: g/cm2 (0.86) / T-score (-1.1) / Z-score (0.5) Right Femoral Neck: g/cm2 (0.846) / T-score (-1.4) / Z-score (0.5) The T-Scores on the most recent prior examination were: Lumbar Spine (L1-L4): There has been improvement of bone density since the previous examination. Left Femur Total: which represents a worsening of 4.1%. Right Femur Total: which represents an improvement of 0.3%. BD/Dexa Bone Density Study IMPRESSION: The patient is considered osteopenic as outlined below according to World Oneal Organization (WHO) criteria with a low fracture risk. There has been improvement of bone density since the previous examination. Reference Information: The T-score is the number of standard deviations above or below the standard which is normal for young adults at their peak bone mineral density. The World Health Organization (WHO) interprets the T-scores as follows: Above -1 Normal bone density Between -1 and -2.5 Osteopenia Equal to / or below -2.5 Osteoporosis As a practical clinical guideline, osteopenia may be graded as follows: Mild -1 through -1.5 Moderate -1.6 through -2.0 Severe -2.1 through -2.4 The Z-score is the number of standard deviations above or below age-matched controls. A Z-score of less than -1.5 would be considered abnormal. References: 1. NIH Osteoporosis and Related Bone Diseases www osteo.org 2. International Society for Clinical Densitometry www iscd.org 3. National Osteoporosis Foundation www nof.org Electronically Signed: Temo Lopez MD at 15:51 EDT , Service support ,
== END ==
PROVIDERS: PCP Internal Medicine; Referring Provider Internal Medicine; Visit Provider Internal Medicine
DX: Z78.0 Asymptomatic menopausal state (principal); Z12.31 Encounter for screening mammogram for malignant neoplasm of breast
CPT/HCPCS: 77063; 77067; 77080

== ENCOUNTER → 2021-09-03 | Outpatient (CLI) | payer MEDICARE, BC, SELFPAY ==
--- NOTE | 2021-09-03 07:46 | BI_ITS ---
MAMMOGRAPHY - BILATERAL SCREENING REASON FOR EXAM: Female, 75 years old. Routine annual screening examination. PERTINENT HISTORY: Non-contributory. History of prior right ultrasound-guided breast biopsy. TECHNIQUE: Digital bilateral breast spencer (3D mammographic acquisition) in the CC and MLO projections. 2-D mediolateral oblique (MLO) and craniocaudad (CC) views of both breasts were obtained. CAD: Full Field Digital Mammography with Computer Added Detection was performed. COMPARISON: Comparison is made with prior study dated 08/22/2020 and 12/11/2018. FINDINGS: Breast Composition: There are scattered areas of fibroglandular density. There are no dominant masses or suspicious calcifications. Stable small benign-appearing bilateral axillary lymph nodes. No other significant abnormalities are identified. There has been no significant change since the prior study. BI/SCRN MAMM (CAD)W/SPENCER BILAT IMPRESSION: Stable bilateral screening mammogram. Yearly follow-up mammogram recommended. (A) ASSESSMENT CATEGORY: BIRADS Category 2: Benign. A letter regarding these results will be sent to the patient by the facility within 30 days. Approximately 10% of breast cancers are not detected by mammography. A normal mammogram should not delay biopsy of a clinically suspicious abnormality. [id number] Electronically Signed: Temo Lopez MD at 9:15 EDT ,
== END | disposition home or self-care (01) ==
LOC: OPBI 07:44
PROVIDERS: PCP Internal Medicine; Referring Provider Internal Medicine; Visit Provider Internal Medicine
DX: Z12.31 Encounter for screening mammogram for malignant neoplasm of breast (principal); Z85.3 Personal history of malignant neoplasm of breast
CPT/HCPCS: 77063; 77067

== ENCOUNTER → 2022-12-26 | Outpatient (CLI) | payer MEDICARE, BC, SELFPAY ==
--- NOTE | 2022-12-26 13:33 | BI_ITS ---
MAMMOGRAPHY - BILATERAL SCREENING REASON FOR EXAM: Female, 77 years old. Routine annual screening examination. PERTINENT HISTORY: Prior right breast biopsies. No reported personal or family history of breast cancer. TECHNIQUE: Digital bilateral breast spencer (3D mammographic acquisition) in the CC and MLO projections. 2-D mediolateral oblique (MLO) and craniocaudad (CC) views of both breasts were obtained. CAD: Full Field Digital Mammography with Computer Added Detection was performed. COMPARISON: Screening mammogram from 09/03/2021, 08/22/2020. FINDINGS: Breast Composition: There are scattered areas of fibroglandular density. There are no dominant masses or suspicious calcifications. Stable small benign-appearing bilateral axillary lymph nodes. No other significant abnormalities are identified. There has been no significant change since the prior study. BI/SCRN MAMM (CAD)W/SPENCER BILAT IMPRESSION: Stable bilateral screening mammogram. Yearly follow-up mammogram recommended. (A) ASSESSMENT CATEGORY: BIRADS Category 2: Benign. A letter regarding these results will be sent to the patient by the facility within 30 days. Approximately 10% of breast cancers are not detected by mammography. A normal mammogram should not delay biopsy of a clinically suspicious abnormality. Electronically Signed: Isaac Cutler DO at 16:15 EDT ,
--- NOTE | 2022-12-26 13:36 | BD_ITS ---
STUDY: DUAL ENERGY X-RAY ABSORPTIOMETRY / DXA REASON FOR EXAM: Female, 77 years old. Z780 TECHNIQUE: Bone Mineral Density (BMD) measurements of lumbar spine and bilateral hips were obtained. COMPARISON: Comparison is made with prior study dated August 22, 2020. FINDINGS: Lumbar Spine (L1-L4): g/cm2 (1.054) / T-score (0.3) / Z-score (2.7) Findings are suggestive of normal bone density with a low fracture risk. Left Femur Total: g/cm2 (0.909) / T-score (-0.3) / Z-score (1.6) Left Femoral Neck: g/cm2 (0.630) / T-score (-2.0) / Z-score (0.2) Right Femur Total: g/cm2 (0.859) / T-score (-0.7) / Z-score (1.2) Right Femoral Neck: g/cm2 (0.649) / T-score (-1.8) / Z-score (0.3) The T-Scores on the most recent prior examination were: Lumbar Spine (L1-L4): There has been worsening of bone density since the previous examination. Left Femur Total: which represents an improvement of 3.3%. Right Femur Total: which represents an improvement of 6.8%. BD/Dexa Bone Density Study IMPRESSION: The patient is considered osteopenic as outlined below according to World Oneal Organization (WHO) criteria with a moderate fracture risk. There has been improvement of bone density since the previous examination. Reference Information: The T-score is the number of standard deviations above or below the standard which is normal for young adults at their peak bone mineral density. The World Health Organization (WHO) interprets the T-scores as follows: Above -1 Normal bone density Between -1 and -2.5 Osteopenia Equal to / or below -2.5 Osteoporosis As a practical clinical guideline, osteopenia may be graded as follows: Mild -1 through -1.5 Moderate -1.6 through -2.0 Severe -2.1 through -2.4 The Z-score is the number of standard deviations above or below age-matched controls. A Z-score of less than -1.5 would be considered abnormal. References: 1. NIH Osteoporosis and Related Bone Diseases www osteo.org 2. International Society for Clinical Densitometry www iscd.org 3. National Osteoporosis Foundation www nof.org Electronically Signed: Temo Lopez MD at 15:44 EDT ,
== END | disposition home or self-care (01) ==
LOC: OPBD 13:30
PROVIDERS: PCP Internal Medicine; Referring Provider Internal Medicine; Visit Provider Internal Medicine
DX: Z12.31 Encounter for screening mammogram for malignant neoplasm of breast (principal); Z78.0 Asymptomatic menopausal state
CPT/HCPCS: 77063; 77067; 77080

== ENCOUNTER → 2023-06-30 | Outpatient (CLI) | payer MEDICARE, BC, SELFPAY ==
--- NOTE | 2023-06-30 13:06 | US_ITS ---
EXAM: US RETROPERITONEAL LIMITED, RENAL CLINICAL INDICATION: Other proteinuria TECHNIQUE: Limited grayscale and color Doppler sonographic evaluation of the retroperitoneum was performed. COMPARISON: No relevant prior studies available. FINDINGS: RIGHT KIDNEY: Right kidney measures 10.2 cm in length. No hydronephrosis. No shadowing calculus. No perinephric collection is demonstrated. LEFT KIDNEY: Left kidney measures 10.0 cm in length. No hydronephrosis. No shadowing calculus. No perinephric collection is demonstrated. BLADDER: Urinary bladder is normal. US/Kidney and Bladder IMPRESSION: Normal-sized kidneys without hydronephrosis. Electronically Signed: Nicholas Mercado MD at 10:35 EST ,
--- OUTSIDE RECORDS SUMMARY | 2023-06-30 21:35 | XMS RPT_ITS | CCD ---
Author Name Unknown Address [address] [facility] [address] [place] [address] Organization [facility] Care Team Providers Care Painter Hand Name Role Phone Yemi HERNANDEZ, Jaimie Xavier Primary Care Provider 1( [phone] Medications Completed/Discontinued Medications Medication Drug Class(es) Dates Sig (Normalized) Sig (Original) atorvastatin 10 mg oral tablet (1 source) HMG-CoA Reductase Inhibitor Start: 12-15-2013 take 1 tablet by mouth once daily atorvastatin (LIPITOR) 10 mg tablet Take 1 tablet by mouth once daily. 0 12/15/2013 Active Problems Problem Classification Problem Date Documented Date Episodic/Chronic Biliary tract disease (1 source) Gallstone; Translations: [Calculus of gallbladder without cholecystitis without obstruction] Onset: 01-18-2014 01-18-2014 Episodic Other and unspecified benign neoplasm (1 source) History of polyp of colon; Translations: [Personal history of colonic polyps] Onset: 06-27-2014 06-27-2014 Episodic Encounters Encounter Date Encounter Type Care Provider Facility Start: 06-27-2014 End: 06-27-2014 Telephone encounter Gato Joshi MD Work Phone: General Surgery Procedures Date Procedure Procedure Detail Performing Clinician Start: 07-13-2014 Colonoscopy Gato licona MD Work Phone: Plan of Treatment Date Care Activity Detail Author Start: 01-03-2021 Influenza vaccination INFLUENZA (Sea son Ended) [facility] Start: 07-14-2015 Screening for malign ant neoplasm of colon [facility] Start: 10-27-2011 ADVANCE DIRECTIVE DISCUSSION ADVANCE DIRECTIVE DISCUSSION [facility] Start: 10-27-2011 BONE DENSITY BONE DENSITY [facility] Start: 10-27-2011 PNEUMOVAX AGE 65 AND OVER WITH 5YR LOOKBACK (#1) PNEUMOVAX AGE 65 AND OVER WITH 5YR LOOKBACK (#1) [facility] Start: 07-25-2009 LIPID SCREEN LIPID SCREEN [facility] Start: 08-04-2007 DIABETES SCREEN DIABETES SCREEN [facility] Start: 1996 Screening for malign ant neoplasm of colon [facility] Start: 1996 SHINGRIX VACCINE (1 of 2) CALVERT GRIX VACCINE (1 of 2) [facility] Start: 1986 Mammography MAMMOGRAM [facility] Start: 1965 Urine microalbumin profile DTAP,TDAP ,TD (1 - Tdap) [facility] Start: 1964 HEPATITIS C SCREENING HEPATITIS C SC REENING [facility] Start: 1958 Adult depression scr eening assessment DEPRESSION SCREENING [facility] Payers Date Payer Category Payer Medicare MEDICARE MEDICAR E B [id number] 2011-Present [place], [place] Medicare [id number] 2003 Unknown [employer] BLUE CARD PPO [id number] 2003-Present PPO [id number] Social History Date Type Detail Facility Start: 06-27-2014 Tobacco smoking stat us [place]IS Never smoker [facility] Start: 06-27-2014 Alcohol intake Current non-dr technical asst of alcohol (finding) [facility] Start: 1945 Sex Assigned At Not on file [facility] Additional Source Comments Source Comments (unrecognize d section and content) In the event this informatio n is protected by the Federal Confidentiality of Alcohol and Drug Abuse Patient Records regulations: The Federal rules restrict any use of the information to criminally investigate or prosecute any alcohol or drug abuse patient.[facility] Reason for Visit (unrecogniz ed section and content) FOR RECORDS PERTAINING TO PATIENTS WHO ARE OR HAVE BEEN ENROLLED IN A CHEMICAL DEPENDENCY/SUBSTANCEABUSE PROGRAM, SOME INFORMATION MAY BE OMITTED. This clinical summary was aggregated from multiple sources. Caution should be exercised in using it in the provision of clinical care. This summary normalizes information from multiple sources, and as a consequence, information in this document may materially change the coding, format and clinical context of patient data. In addition, data may be omitted in some cases. CLINICAL DECISIONS SHOULD BE BASED ON THE PRIMARY CLINICAL RECORDS. [facility] [employer] [facility]. provides no warranty or guarantee of the accuracy or completeness of information in this document.
== END | disposition home or self-care (01) ==
LOC: US 13:05
PROVIDERS: PCP Internal Medicine; Referring Provider Internal Medicine; Visit Provider Internal Medicine
DX: R80.8 Other proteinuria (principal)
CPT/HCPCS: 76770

== ENCOUNTER → 2024-01-12 | Outpatient (CLI) | payer MEDICARE, BC, SELFPAY ==
--- NOTE | 2024-01-12 12:45 | BI_ITS ---
MAMMOGRAPHY - BILATERAL SCREENING 3-D TOMOSYNTHESIS REASON FOR EXAM: Female, 78 years old. SCRN MAMM (CAD)W/SPENCER BILAT -- Screening mammogram, encounter for mailignant neoplasm of breast PERTINENT HISTORY: No significant family history. TECHNIQUE: 2-D mammograms and 3-D Tomosynthesis of the breast (s) were performed. CAD was performed. COMPARISON: 12/26/2022 FINDINGS: The breast composition is composed of scattered fibroglandular density. Scattered benign calcifications are seen. No dense spiculated masses or suspicious microcalcifications are identified. No architectural distortion is identified. There is no skin thickening or retraction. There has been no significant change since the prior study. BI/SCRN MAMM (CAD)W/SPENCER BILAT IMPRESSION: No mammographic signs of malignancy. Routine yearly mammograms recommended. ASSESSMENT CATEGORY: BIRADS Category 1: Negative. A letter regarding these results will be sent to the patient by the facility within 30 days. FOLLOW UP RECOMMENDATION: Yearly follow up mammogram recommended. (A) Approximately 10% of breast cancers are not detected by mammography. A normal mammogram should not delay biopsy of a clinically suspicious abnormality. Electronically Signed: Gato Gonzales MD at 14:43 EDT ,
== END | disposition home or self-care (01) ==
LOC: OPBI 12:45
PROVIDERS: PCP Internal Medicine; Referring Provider Internal Medicine; Visit Provider Internal Medicine
DX: Z12.31 Encounter for screening mammogram for malignant neoplasm of breast (principal)
CPT/HCPCS: 77063; 77067

== ENCOUNTER → 2024-01-30 | Outpatient (CLI) | payer MEDICARE, BC, SELFPAY ==
[2024-01-30 10:35] LABS: Anion Gap 8 (5-15); BUN 19 mg/dL (7-18); BUN/Creat Ratio 18.1 RATIO (10-20); Calcium,Total 9.4 mg/dL (8.5-10.1); Chloride 105 mmol/L (98-107); Creatinine, Serum 1.05 mg/dL (0.55-1.02); EST Glomerular Filtration Rate 54 mL/min (>60); Est Glom Filt Rate - Afr Amer 65 mL/min (>60); Glucose 122 mg/dL (74-106); Potassium 3.6 mmol/L (3.5-5.1); Sodium Level 139 mmol/L (136-145)
[2024-01-30 10:37] LABS: Microalbumin,Random Urine 25.2 mg/L (NO RANGE EST.); Microalbumin:Creatinine Ratio 86.9 mg/g CRE (<30 mg/g CRE)
[2024-02-02 16:09] LABS: Immunoglobulin A 298 mg/dL (64-422); Immunoglobulin G 1019 mg/dL (586-1602); Immunoglobulin M 40 mg/dL (26-217)
== END | disposition home or self-care (01) ==
LOC: LAB 08:48
PROVIDERS: PCP Internal Medicine; Referring Provider Internal Medicine Nephrology; Visit Provider Internal Medicine Nephrology
DX: R80.9 Proteinuria, unspecified (principal); N18.2 Chronic kidney disease, stage 2 (mild)
CPT/HCPCS: 36415; 80048; 82043; 82570; 82784; 86334

== ENCOUNTER 2024-02-18 09:00 | Outpatient (RCR) | payer MEDICARE, BC, SELFPAY ==
[2024-02-11 10:15] VITALS: BP 160/93; PULSE 63; RESP 18; TEMP 35.9; BMI 35.1
--- NOTE | 2024-02-11 12:06 | PCM.WC.HP ---
History of Present Illness Date of Service: 02/11/24 Chief Complaint: Right axilla abscess History of Wound: 78-year-old woman that felt like something was pinching in her right axilla on Friday and then it opened on Friday and abscess that drained pus. She went to her regular family doctor and she sent her to the wound center. The wound itself appears clean but open with positive depth. She is used nothing on it. She has history of autoimmune disorders such as rheumatoid arthritis and is on a lot of meds for that methotrexate and sulfasalazine. She also has send thyroid for her thyroid and she is also diabetic. This makes her more prone to poor immune system that makes her more liable to infections [facility] Medical History (Updated 02/11/24 @ 12:15 by Bernie Coker NP, IN[employer]CTOR [employer]) Fibroadenoma of right breast in female Abnormal ultrasound of breast Diabetes Glaucoma Hypothyroid Primary hypercholesterolemia HTN (hypertension) Arthritis Home Medications ?Medication ?Instructions ?Recorded ?Last Taken ?Type atorvastatin 10 mg tablet 20 mg PO DAILY 01/04/14 Unknown History cholecalciferol (vitamin D3) 50 2,000 unit PO DAILY 01/04/14 Unknown History mcg (2,000 unit) tablet hydroxychloroquine 200 mg tablet 200 mg PO BIDCM 01/04/14 Unknown History levothyroxine 125 mcg tablet 175 mcg PO DAILY 01/04/14 09/14/19 History losartan 50 mg-hydrochlorothiazide 1 tab PO DAILY htn 01/04/14 Unknown History 12.5 mg tablet metformin 500 mg tablet 500 mg PO BIDCM diabetes 01/04/14 Unknown History metoprolol tartrate 50 mg tablet 50 mg PO DAILY htn 01/04/14 09/14/19 History qxdthoag-nya-msvcn acid 0.4 1 ea PO DAILY 01/04/14 Unknown History mg-lycopene 300 mcg-lutein 250 mcg tablet sulfasalazine 500 mg tablet 1,000 mg PO BID 01/04/14 Unknown History dorzolamide-timolol (PF) 2 %-0.5 % 1 drp ophthalmic (eye) BID 10/30/17 Unknown History eye drops in a dropperette meloxicam 7.5 mg tablet 15 mg PO DAILY arthritis 10/30/17 Unknown History latanoprost 0.005 % eye drops 1 drp EACH EYE QHS 12/07/18 Unknown History Allergy/AdvReac Type Severity Reaction Status Date / Time No Known Allergies Allergy Verified 09/14/19 06:53 Family History Mother Diabetes Father Heart disease Grandfather Diabetes Grandmother Diabetes Surgical History S/P right breast biopsy S/P laparoscopic cholecystectomy Social History Smoking Status: Never smoker alcohol intake: never ROS Constitutional Constitutional: Reports systems reviewed and no addt'l complaints, except as documented Eyes Eyes: Reports systems reviewed and no addt'l complaints, except as documented ENT HEENT: Reports systems reviewed and no addt'l complaints, except as documented Cardiovascular Cardiovascular: Reports systems reviewed and no addt'l complaints, except as documented Respiratory/Chest Respiratory/Chest: Reports systems reviewed and no addt'l complaints, except as documented Gastrointestinal Gastrointestinal: Reports systems reviewed and no addt'l complaints, except as documented Genitourinary Genitourinary: Reports systems reviewed and no addt'l complaints, except as documented Musculoskeletal Musculoskeletal: Reports systems reviewed and no addt'l complaints, except as documented Integumentary Integumentary: Reports wounds and other Details: Open small wound with depth right axilla Neurologic Neurologic: Reports systems reviewed and no addt'l complaints, except as documented Psychiatric Psychiatric: Reports systems reviewed and no addt'l complaints, except as documented Endocrine Endocrinology: Reports systems reviewed and no addt'l complaints, except as documented Hematologic/Lymphatic Hematologic/Lymphatic: Reports systems reviewed and no addt'l complaints, except as documented Allergic/Immunologic Allergic/Immunologic: Reports systems reviewed and no addt'l complaints, except as documented Vital Signs Vital Signs Vital Signs: 02/11/24 10:15 Temperature 96.7 F L Temperature Source Temporal Pulse Rate 63 Respiratory Rate 18 Blood Pressure 160/93 H Blood Pressure Mean 115 Blood Pressure Source Monitor Weight Weight: 204 lb 11.888 oz Body Mass Index (BMI) 35.1 Physical Exam Const oriented x3 General Appearance: cooperative Exam Limitations: no limitations HEENT normocephalic Eyes PERRL Resp normal respiratory effort Effort and Inspection: able to speak in complete sentences Auscultation: clear to auscultation bilaterally Cardio regular rate and regular rhythm Palpation: normal PMI Rate: regular rate Rhythm: regular rhythm Extremity Extremity Narrative: Axilla has an open wound General Extremity: normal exam except as noted Skin no rashes or lesions noted Wounds: wounds noted Wound Narrative: Open wound right axilla positive depth no undermining no infection no odor Neuro oriented x3 Psych Appearance: grossly normal Speech: normal speech Thought Content: normal thought content Judgement: judgement good Debridement Note Debridement Note Wound debrided: Right axilla Type of Debridement: Excisional debridement Anesthesia Used: 5% Lidocaine Gel Depth: Down to and including healthy tissue and in the subcutaneous layer Percentage of wound debrided: 100 Instrument Used: 3mm curette Tissue Removed: Fibrin Severity: Fat Layer Exposed Amount of bleeding with debridement: Mild Bleeding Controlled with: Compression and gauze Patient tolerated procedure: Patient tolerated procedure well Post-Debridement Measurements and Additional Note: Post-Debridement Measurements/Treatment JAMES - Nurse 1 - General Ulcer Assessment Start: 02/11/24 10:14 Freq: Status: Active Protocol: ZAN Activity Type Activity Date Activity User E-sign Co-sign Detail Recorded Client Recorded Date Recorded By Document 02/11/24 10:15 DL [id number] 02/11/24 10:26 DL 02/11/24 10:15 JAMES - Today's Visit Information Type of service Initial Visit Arrival Mode Ambulatory Transfer Assistance None Patient Identification Verified (Name & Yes ) Patient Requires Transmission-Based No Precautions Finger Stick Blood Sugar(mg/dl) (if doesnt check indicated): Height and Weight Height 5 ft 4 in Weight 204 lb 11.888 oz Weight in Pounds 204.7 lbs Body Mass Index (BMI) 35.1 BMI Classification Obese BSA - Rox 1.98 Vital Signs Temperature (97.8 F-99.1 F) 96.7 F L Temperature Source Temporal Pulse Rate (60-100) 63 Respiratory Rate (12-18) 18 Respiratory rate source Observation Blood Pressure (90/60-120/80) 160/93 H Blood Pressure Mean 115 Source Monitor Pain Scale: 0-10 Numeric Is Patient Pain Free? Yes Communication Assessment Preferred language Arabic Able to Read Yes Able to Write Yes Communication Tools None Right Hearing Abillity Normal Left Hearing Abillity Normal Visual Assistive Devices Glasses Teaching Assessment Preferences Verbal,Written, Demonstration Barriers to Learning None Readiness To Learn Good Willingness to Engage in Self Management Med Activies Readiness to Engage in Self Management Med Activities Anxiety Level Calm Cooperation Cooperative Perception Coherent Interest in Health Problem Asks Questions Education Importance Acknowledges Need Does Patient Smoke tobacco or other No substances Smoking Status Never smoker Is Patient Diabetic Yes Functional Assessment Recent Decline in Ability to Perform Denies Any Declines Culture/Caodaism/Assistant Professor Of Spanish Cultural/Caodaism Needs that may affect No Treatment Plan Would you allow our hospital speed reading teacher to No meet you for the purpose of spiritual/ emotional support? Assistant Professor Of Spanish to contact place of hinduism No Teaching: Wound Center Dressing Your Wound -Person Taught Patient *Welcome to the Wound Center -Person Taught Patient WC - Nurse 1 - General Ulcer Measurement Start: 02/11/24 10:14 Freq: Status: Active Protocol: Activity Type Activity Date Activity User E-sign Co-sign Detail Recorded Client Recorded Date Recorded By Document 02/11/24 10:15 DL [id number] 02/11/24 10:26 DL 02/11/24 10:15 Wound Center Nurse 1 #1 R Axilla -Current Size (cm) - Length 0.6 -Current Size (cm) - Width 0.3 -Current Size (cm) - Depth 0.3 -Total Square Cm 0.18 -Photo Taken Yes -Classification - Thickness Full Thickness without Exposed Support Structure -Exudate Amt Small -Exudate Type Serosanguineous -Wound Margin Distinct, Outline Attached -Granulation Amt Small (1-33%) -Granulation Quality [place],Red -Necrosis Amt None Present (0 %) -Structure Exposed N/A -Texture (Carito-wound Skin Appearance) Scarring -Moisture (Carito-wound Skin Appearance) No Abnormality -Color (Carito-wound Skin Appearance) Erythema -Temperature (Carito-wound Skin No Abnormality Appearance) (Pt Warm) -Ulcer Cleansing Soap and Water -Foul Odor after Cleansing No -Anesthetic Used 5% Lidocaine Gel WC - Nurse 2 - General Ulcer CM Notes Start: 02/11/24 10:14 Freq: Status: Active Protocol: Activity Type Activity Date Activity User E-sign Co-sign Detail Recorded Client Recorded Date Recorded By Document 02/11/24 10:43 BM [id number] 02/11/24 10:50 BMF 02/11/24 10:43 Wound Center Nurse 2 -Time 10:43 -Correct Patient Yes -Correct Side, Site, Position Yes -Correct Procedure Yes -Procedure Performed Yes -Type of Procedure Debridement -Clinical Debridement Subcutaneous -Tissue Removed Subcutaneous -Post Debridement (cm) - Length 0.9 -Post Debridement (cm) - Width 0.3 -Post Debridement (cm) - Depth 0.2 -Total Square (Post) (cm) 0.27 -Area of Debridement (cm) - Length 0.9 -Area of Debridement (cm) - Width 0.3 -Total Square (Area) (cm) 0.27 -Tunneling No -Undermining/Tunneling No -Circular Undermining No -Wound/Ulcer Outcome Not Healed -Ulcer Cleansing Rinsed/ Irrigated with Saline -Foul Odor after Cleansing No -Bioengineered Tissue No -Bleeding Controlled with Pressure -Treatment Response Procedure Tolerated Well -Debridement - Subq, 1st 20sq cm Yes Pain Scale: 0-10 Numeric Is Patient Pain Free? Yes - Nurse 3 - General Ulcer D/C NN Start: 02/11/24 10:14 Freq: Status: Active Protocol: Activity Type Activity Date Activity User E-sign Co-sign Detail Recorded Client Recorded Date Recorded By Document 02/11/24 10:52 [facility] [id number] 02/11/24 10:53 [facility] 02/11/24 10:52 Wound Care Center Nurse 3 #1 R Axilla -Ulcer Cleansing Rinsed/ Irrigated with Saline -Foul Odor after Cleansing No -Primary Dressing Applied Aquacel Extra, Mepilex Border -Other Dressing per dl fusion operator -Aquacel Extra 1 -Mepilex Border 1 Treatment Response Procedure Tolerated Well Pain Scale: 0-10 Numeric Is Patient Pain Free? Yes - Visit Discharge Discharge Condition Stable Ambulatory Status Ambulatory Transportation Private Auto Assessment/Plan Assessment/Plan (1) Abscess of right axilla: CODE(S): L02.411 - Cutaneous abscess of right axilla PLAN: Wash area with antibacterial soap such as Dial liquid or solid pat dry and apply Aquacel extra to wound base moistened cover with absorbent dressing every day follow-up in 1 week Cultures obtained will call with results Start Bactrim DS 1 p.o. twice daily for 10 days (2) Nonhealing nonsurgical wound: CODE(S): T14.8XXA - Other injury of unspecified body region, initial encounter
--- NOTE | 2024-02-12 09:28 | WC ---
PHOTO 02/11/24 RIGHT AXILLA
--- NOTE | 2024-02-16 13:00 | WC ---
wound cx's reviewed per janie esquivel. n.o's to stop bactrim and start cipro. pt called and updated. verified no allergies. will call in to preferred [facility]. pt agreeable to all.
--- NOTE | 2024-02-16 13:51 | WC ---
n.o. to start metronidazole 250mg po tid x 14 days per janie esquivel. cx positive for anaerobes. msg left for pt on vm. allergies verified. called to [facility] of choice[facility].
[2024-02-18 09:32] VITALS: BP 144/55; PULSE 66; RESP 18; TEMP 36.1; BMI 35.1
--- NOTE | 2024-02-18 10:06 | PCM.WC.PN ---
History of Present Illness Date of Service: 02/18/24 Chief Complaint: Right axilla abscess History of Wound: 78-year-old woman that felt like something was pinching in her right axilla on Friday and then it opened on Friday and abscess that drained pus. She went to her regular family doctor and she sent her to the wound center. The wound itself appears clean but open with positive depth. She is used nothing on it. She has history of autoimmune disorders such as rheumatoid arthritis and is on a lot of meds for that methotrexate and sulfasalazine. She also has send thyroid for her thyroid and she is also diabetic. This makes her more prone to poor immune system that makes her more liable to infections Progress of Wound: The wound is closed but the cultures came back positive for anaerobes so patient will be discharged on metronidazole 253 times a day for 14 days and she is to finish her ciprofloxacin also. Subjective Subjective Patient is very pleased with outcomes Objective Data Objective Data Wound area is closed looks slightly erythematous but no lump or tenderness or pain noted. Patient will be discharged from the wound center she is to continue finishing her antimicrobial and antibiotic till done. Vital Signs: Vital Signs Temp Pulse Resp BP 97 F L 66 18 144/55 H 02/18/24 09:32 02/18/24 09:32 02/18/24 09:32 02/18/24 09:32 Weight: 204 lb 11.888 oz Body Mass Index (BMI) 35.1 Lab / Micro Data Attestation: I reviewed the patient's lab results. Micro: Microbiology 02/11/24 10:45 Wound - Axilla, Right Gram Stain - Final 02/11/24 10:45 Wound - Axilla, Right Wound Culture - Final Pseudomonas aeruginosa 02/11/24 10:45 Wound - Axilla, Right Anaerobic Culture - Final Anaerobic cocci Physical Exam Const oriented x3 General Appearance: cooperative Exam Limitations: no limitations HEENT normocephalic Eyes PERRL Resp normal respiratory effort Effort and Inspection: able to speak in complete sentences Auscultation: clear to auscultation bilaterally Cardio regular rate and regular rhythm Palpation: normal PMI Rate: regular rate Rhythm: regular rhythm Extremity Extremity Narrative: Axilla has an open wound General Extremity: normal exam except as noted Skin no rashes or lesions noted Wounds: wounds noted Wound Narrative: Open wound right axilla positive depth no undermining no infection no odor Neuro oriented x3 Psych Appearance: grossly normal Speech: normal speech Thought Content: normal thought content Judgement: judgement good Debridement Note Debridement Note No debridement was completed: No debridement was completed today Post-Debridement Measurements and Additional Note: Post-Debridement Measurements/Treatment - Nurse 1 - General Ulcer Assessment Start: 02/11/24 10:14 Freq: Status: Active Protocol: [email or web address] Activity Type Activity Date Activity User E-sign Co-sign Detail Recorded Client Recorded Date Recorded By Document 02/11/24 10:15 DL [id number] 02/11/24 10:26 DL Document 02/18/24 09:32 DL [id number] 02/18/24 09:35 DL 02/11/24 02/18/24 10:15 09:32 - Today's Visit Information Type of service Initial Visit Follow-up Visit (Physician/BUILDING CERTIFIER ) Arrival Mode Ambulatory Ambulatory Transfer Assistance None None Patient Identification Verified (Name & Yes Yes ) Patient Requires Transmission-Based No No Precautions Finger Stick Blood Sugar(mg/dl) (if doesnt check indicated): Height and Weight Height 5 ft 4 in Weight 204 lb 11.888 oz Weight in Pounds 204.7 lbs Body Mass Index (BMI) 35.1 35.1 BMI Classification Obese Obese BSA - Rox 1.98 Vital Signs Temperature (97.8 F-99.1 F) 96.7 F L 97 F L Temperature Source Temporal Temporal Pulse Rate (60-100) 63 66 Pulse Location Monitor Respiratory Rate (12-18) 18 18 Respiratory rate source Observation Observation Blood Pressure (90/60-120/80) 160/93 H 144/55 H Blood Pressure Mean (mm Hg) 115 84 Source Monitor Monitor History Since Last Visit- (Skip if this is Patient's initial visit) Have you changed medications since your No last visit? Any new allergies or adverse reactions No Had a fall/change in ADL's that may No increase risk of falls Signs or symptoms of abuse and/or No neglect since last visit Have you been in the hospital since your No last visit? Has dressing in place as prescribed Yes Has compression in place as prescribed N/A Has offloadiing in place as prescribed N/A Experienced any changes in pain level or Yes management Pain Scale: 0-10 Numeric Is Patient Pain Free? Yes Yes Communication Assessment Preferred language [place] Able to Read Yes Able to Write Yes Communication Tools None Right Hearing Abillity Normal Left Hearing Abillity Normal Visual Assistive Devices Glasses Teaching Assessment Preferences Verbal,Written, Demonstration Barriers to Learning None Readiness To Learn Good Willingness to Engage in Self Management Med Activies Readiness to Engage in Self Management Med Activities Anxiety Level Calm Cooperation Cooperative Perception Coherent Interest in Health Problem Asks Questions Education Importance Acknowledges Need Does Patient Smoke tobacco or other No substances Smoking Status Never smoker Is Patient Diabetic Yes Functional Assessment Recent Decline in Ability to Perform Denies Any Declines Culture/Anabaptism/Senior Oracle Developer Cultural/Anabaptism Needs that may affect No Treatment Plan Would you allow our [facility] industrial machine assembler to No meet you for the purpose of spiritual/ emotional support? Senior Oracle Developer to contact place of pentecostalism No Teaching: Wound Center Dressing Your Wound -Person Taught Patient *Welcome to the Wound Center -Person Taught Patient WC - Nurse 1 - General Ulcer Measurement Start: 02/11/24 10:14 Freq: Status: Active Protocol: Activity Type Activity Date Activity User E-sign Co-sign Detail Recorded Client Recorded Date Recorded By Document 02/11/24 10:15 DL [id number] 02/11/24 10:26 DL Document 02/18/24 09:32 DL [id number] 02/18/24 09:35 DL 02/11/24 02/18/24 10:15 09:32 Wound Center Nurse 1 #1 R Axilla -Current Size (cm) - Length 0.6 0 -Current Size (cm) - Width 0.3 0 -Current Size (cm) - Depth 0.3 0 -Total Square Cm 0.18 0 -Photo Taken Yes Yes -Classification - Thickness Full Thickness without Exposed Support Structure -Exudate Amt Small None Present -Exudate Type Serosanguineous -Wound Margin Distinct, Flat & Intact Outline Attached -Granulation Amt Small (1-33%) Large (67-100%) -Granulation Quality [place],Red [place] -Necrosis Amt None Present (0 None Present (0 %) %) -Structure Exposed N/A N/A -Texture (Carito-wound Skin Appearance) Scarring Scarring -Moisture (Carito-wound Skin Appearance) No Abnormality No Abnormality -Color (Carito-wound Skin Appearance) Erythema No Abnormality -Temperature (Carito-wound Skin No Abnormality No Abnormality Appearance) (Pt Warm) (Pt Warm) -Tenderness on Palpation (Carito-wound No Skin Appearance) -Ulcer Cleansing Soap and Water Rinsed/ Irrigated with Saline -Foul Odor after Cleansing No No -Anesthetic Used 5% Lidocaine Gel WC - Nurse 2 - General Ulcer CM Notes Start: 02/11/24 10:14 Freq: Status: Active Protocol: Activity Type Activity Date Activity User E-sign Co-sign Detail Recorded Client Recorded Date Recorded By Document 02/11/24 10:43 [facility] [id number] 02/11/24 10:50 [facility] Document 02/18/24 09:42 [facility] [id number] 02/18/24 09:44 F 02/11/24 02/18/24 10:43 09:42 Wound Center Nurse 2 #1 R Axilla -Time 10:43 -Correct Patient Yes -Correct Side, Site, Position Yes -Correct Procedure Yes -Procedure Performed Yes -Type of Procedure Debridement -Clinical Debridement Subcutaneous -Tissue Removed Subcutaneous -Post Debridement (cm) - Length 0.9 0 -Post Debridement (cm) - Width 0.3 0 -Post Debridement (cm) - Depth 0.2 0 -Total Square (Post) (cm) 0.27 0 -Area of Debridement (cm) - Length 0.9 0 -Area of Debridement (cm) - Width 0.3 0 -Total Square (Area) (cm) 0.27 0 -Tunneling No -Undermining/Tunneling No -Circular Undermining No -Wound/Ulcer Outcome Not Healed Healed- Epithelialized -Ulcer Cleansing Rinsed/ Irrigated with Saline -Foul Odor after Cleansing No -Bioengineered Tissue No -Bleeding Controlled with Pressure NA -Treatment Response Procedure Tolerated Well -Debridement - Subq, 1st 20sq cm Yes Pain Scale: 0-10 Numeric Is Patient Pain Free? Yes Yes - Nurse 3 - General Ulcer D/C NN Start: 02/11/24 10:14 Freq: Status: Active Protocol: Activity Type Activity Date Activity User E-sign Co-sign Detail Recorded Client Recorded Date Recorded By Document 02/11/24 10:52 [facility] [id number] 02/11/24 10:53 [facility] Document 02/18/24 09:44 [facility] [id number] 02/18/24 09:44 [facility] 02/11/24 02/18/24 10:52 09:44 Wound Care Center Nurse 3 #1 R Axilla -Ulcer Cleansing Rinsed/ Irrigated with Saline -Foul Odor after Cleansing No -Primary Dressing Applied Aquacel Extra, Mepilex Border -Other Dressing per dl molder vacuum -Aquacel Extra 1 -Mepilex Border 1 -Wound Comment(s) healed Treatment Response Procedure Tolerated Well Pain Scale: 0-10 Numeric Is Patient Pain Free? Yes Yes WC - Visit Discharge Discharge Condition Stable Stable Ambulatory Status Ambulatory Ambulatory Transportation Private Auto Assessment/Plan Assessment/Plan (1) Abscess of right axilla: CODE(S): L02.411 - Cutaneous abscess of right axilla PLAN: Patient is discharged from the wound center she is to finish her metronidazole 3 times a day for 14 days and her ciprofloxacin twice a day for the 14 days also She does not have to return unless there is issues if she does not finish the antibiotics and the antimicrobial it may reopen follow-up as needed. (2) Nonhealing nonsurgical wound: CODE(S): T14.8XXA - Other injury of unspecified body region, initial encounter
--- NOTE | 2024-02-19 11:11 | WC ---
PHOTO 02/18/24 RIGHT AXILLA
== END 2024-02-18 16:08 | disposition home or self-care (01) ==
LOC: WC 09:00
PROVIDERS: PCP Internal Medicine; Referring Provider Internal Medicine; Visit Provider Nurse Practitioner
DX: L02.411 Cutaneous abscess of right axilla (principal); M06.9 Rheumatoid arthritis, unspecified; E11.9 Type 2 diabetes mellitus without complications; T81.89XA Other complications of procedures, not elsewhere classified, initial encounter; Z79.1 Long term (current) use of non-steroidal anti-inflammatories (NSAID); I10 Essential (primary) hypertension; Z79.84 Long term (current) use of oral hypoglycemic drugs; E78.00 Pure hypercholesterolemia, unspecified; E03.9 Hypothyroidism, unspecified; Z90.49 Acquired absence of other specified parts of digestive tract
CPT/HCPCS: 11042; 87070; 87075; 87077; 87186; 87205; 99212; 99213; G0463

== ENCOUNTER → 2025-01-19 | Outpatient (CLI) | payer MEDICARE, BC, SELFPAY ==
--- NOTE | 2025-01-19 12:30 | BI_ITS ---
EXAM: SCRN MAMM (CAD)W/SPENCER BILAT DATE: 01/19/2025 CLINICAL HISTORY: F, Age 79 y/o , SCREENING No family history. TECHNIQUE: Procedure Code: [id number] Modality: MG Procedure: SCRN MAMM (CAD)W/SPENCER BILAT COMPARISON: Prior exam(s) dated January 12, 2024.. FINDINGS: TISSUE DENSITY: There are scattered areas of fibroglandular density. Bilateral Breast Mammographic Findings: No significant masses, calcifications or other abnormalities are identified. Stable small benign-appearing axillary lymph nodes. No suspicious masses, areas of developing architectural distortion, or suspicious calcifications. There has been no significant interval change. BI/SCRN MAMM (CAD)W/SPENCER BILAT IMPRESSION: Stable bilateral screening mammogram. OVERALL FINAL ASSESSMENT BI-RADS 2: BENIGN RECOMMENDATION: Routine annual follow-up in 1 Year A letter with findings and recommendations will be mailed to the patient. Reading Location: [place] [id number]
--- NOTE | 2025-01-19 12:40 | BD_ITS ---
PROCEDURE: DEXA BONE DENSITY STUDY 01/19/2025 REASON FOR EXAM: F, age 79 y/o . Postmenopausal. TECHNIQUE: Procedure Code: BDDBD Modality: DX Procedure: DEXA BONE DENSITY STUDY COMPARISON: Prior study dated August 22, 2020. FINDINGS: BMD and T-SCORES Lumbar spine: 1.091 g/cm2, T-score 0.3 Levels: L1 through L4 Change from prior: Loss of 3.9%. Left femoral neck: 0.643 g/cm2, T-score -1.9 Femoral neck comparison data not recommended for monitoring change. Left total hip: 0.860 g/cm2, T-score -0.7 Change from prior: Loss of 5.4%. Right femoral neck: 0.631 g/cm2, T-score -2.0 Femoral neck comparison data not recommended for monitoring change. Right total hip: 0.805 g/cm2, T-score -1.1 Change from prior: Loss of 6.3%. The World Health Organization has defined the following categories based on bone density: Normal bone density: T-score equal to or greater than -1.0 Osteopenia: T-score between -1.0 and -2.5 Osteoporosis: T-score equal to or less than -2.5 FRAX (or Comparable) Fracture Risk Assessment: 10 Year Probability of Fracture: Major Osteoporotic Fracture: 18% Hip Fracture: 4.2% (Note: FRAX is not to be reported in setting of normal range bone density, osteoporosis on DEXA, known history of osteoporosis, prior osteoporotic hip or vertebral fracture, or for any patient undergoing pharmacological treatment for bone loss.) The National Osteoporosis Foundation (NOF) recommends pharmacological treatment for patients with a FRAX 10-year risk of 3% or higher for a hip fracture, or 20% or higher for a major osteoporotic fracture, to prevent osteoporosis and reduce fracture risk. The patient does meet the pharmacological treatment recommendations for prevention of osteoporosis. BD/Dexa Bone Density Study IMPRESSION: OSTEOPENIA. Recommend follow-up as clinically warranted. Reading Location: [place] [id number]
== END | disposition home or self-care (01) ==
LOC: OPBD 12:24
PROVIDERS: PCP Internal Medicine; Referring Provider Internal Medicine; Visit Provider Internal Medicine
DX: Z12.31 Encounter for screening mammogram for malignant neoplasm of breast (principal); Z78.0 Asymptomatic menopausal state
CPT/HCPCS: 77063; 77067; 77080